=== PATIENT | male | born 1970 | race African-American/Black ===

== ENCOUNTER 2020-05-27 06:13 | Inpatient (IN) ==
[2020-05-27 06:54] LABS: Hematocrit 45.9 VOL% (42.0-52.0); Hemoglobin 14.7 GM/DL (14.0-18.0); Immature Granulocytes % 0.6 %; Immature Granulocytes Absolute 0.03 #; Lymphocytes # 1.1 10*3/uL (1.4-4.0); Lymphocytes % 19.4 % (21.2-54.2); Mean Corpuscular Volume 86.4 FL (87-102); Mean Platelet Volume 9.4 FL (9.6-12.0); Monocytes % 3.7 % (1.7-12.7); Neutrophils % 76.3 % (38.7-73.9); Platelet Count 314 T/CUMM (130-400); Red Blood Count 5.31 MC/CUMM (3.8-5.5); Red Cell Distribution Width 15.8 % (9.3-17.3); White Blood Count 5.4 T/CUMM (4-12)
[2020-05-27 07:03] LABS: INR 1.1; PT Patient Result 11.9 SECS (9.8-11.9)
[2020-05-27 07:15] LABS: Bilirubin,Total 0.5 MG/DL (0.2-1.0); Calcium 7.8 MG/DL (8.5-10.1); Ferritin 1759.4 ng/ml (26-388); Osmolality,Calculated 265.5 MOS/KG (273-304); Potassium 4.6 MMOL/L (3.5-5.1); Total Protein 7.5 G/DL (6.4-8.3)
[2020-05-27] MEDS ORDERED: GLUCAGON 1 MG VIAL IM PRN (08:12)
[2020-05-27] MEDS ORDERED: DEXTROSE 50% 25 GM/50 ML VIAL IV PRN (08:12)
[2020-05-27] MEDS ORDERED: ONDANSETRON 4 MG/2 ML VIAL IV PRN (08:12)
[2020-05-27 08:17] LABS: Hypochromasia Slight; Lymphocytes 17 % (20-55); Platelet Estimate Normal; Segmented Neutrophils 78 % (50-85); Total Cells Counted 100
[2020-05-27] MEDS ORDERED: DEXAMETHASONE 4 MG/1 ML VIAL IV STA (08:19)
[2020-05-27] MEDS: ENOXAPARIN 40 MG/0.4 ML SYRINGE SUBCUT SCH ×2 (08:59→20:50)
[2020-05-27] MEDS ORDERED: DEXAMETHASONE INJ 6 MG in SODIUM CHLORIDE 0.9% 50 ML IV SCH (09:00)
[2020-05-27 09:03] LABS: Thyroid Stimulating Hormone 0.491 uIU/ml (0.358-3.74)
[2020-05-27] MEDS ORDERED: PNEUMOCOCCAL VACCINE (13 VALENT) 0.5 ML SYRINGE IM ONE (09:44)
[2020-05-27] MEDS ORDERED: INFLUENZA VIRUS VACCINE 0.5 ML SYRINGE IM ONE (09:47)
[2020-05-27] MEDS: PANTOPRAZOLE 40 MG TABLET PO SCH (10:07)
[2020-05-27] MEDS: ACETAMINOPHEN 325 MG TABLET PO PRN (10:07)
[2020-05-27] MEDS ORDERED: REMDESIVIR 200 MG in SODIUM CHLORIDE 0.9% 210 ML IV ONE (11:00)
[2020-05-28 06:40] LABS: Basophils % 0.2 % (0.0-0.8); Hematocrit 46.6 VOL% (42.0-52.0); Hemoglobin 14.9 GM/DL (14.0-18.0); Immature Granulocytes % 0.6 %; Immature Granulocytes Absolute 0.03 #; Lymphocytes # 0.8 10*3/uL (1.4-4.0); Lymphocytes % 16.2 % (21.2-54.2); Mean Corpuscular Volume 87.4 FL (87-102); Mean Platelet Volume 9.5 FL (9.6-12.0); Monocytes % 4.3 % (1.7-12.7); Neutrophils % 78.7 % (38.7-73.9); Platelet Count 336 T/CUMM (130-400); Red Blood Count 5.33 MC/CUMM (3.8-5.5); Red Cell Distribution Width 15.9 % (9.3-17.3); White Blood Count 4.7 T/CUMM (4-12)
[2020-05-28 07:15] LABS: Band Neutrophils 1 % (0-10); Lymphocytes 14 % (20-55); Platelet Estimate Adequate; Segmented Neutrophils 77 % (50-85); Total Cells Counted 100
[2020-05-28 07:18] LABS: Albumin 2.5 G/DL (3.4-5.0); Bilirubin,Total 0.4 MG/DL (0.2-1.0); Calcium 8.2 MG/DL (8.5-10.1); Potassium 5.3 MMOL/L (3.5-5.1); Risk Ratio 5.32; Total Protein 7.8 G/DL (6.4-8.3)
[2020-05-28] MEDS ORDERED: SODIUM CHLORIDE 0.9% 1,000 ML IV SCH (08:30)
[2020-05-28] MEDS: PANTOPRAZOLE 40 MG TABLET PO SCH (09:08)
[2020-05-28] MEDS: DEXAMETHASONE 4 MG/1 ML VIAL IV SCH (09:08)
[2020-05-28] MEDS: ENOXAPARIN 40 MG/0.4 ML SYRINGE SUBCUT SCH ×2 (09:08→21:13)
[2020-05-28] MEDS: REMDESIVIR 100 MG in SODIUM CHLORIDE 0.9% 100 ML IV SCH (09:08)
[2020-05-28 09:25] LABS: ABG HCO3 26.1 MMOL/L (20-26); ABG Oxygen Saturation 23.7 % (95-100); ABG PCO2 53.8 MM HG (35-48); ABG PH 7.369 (7.35-7.45); ABG TCO2 27.2 MMOL/L (23-27)
[2020-05-28 09:28] LABS: ABG PO2 21.8 MM HG (80-95)
[2020-05-28 10:21] LABS: ABG Base Excess 2.4 MMOL/L (-2.5-2.5); ABG HCO3 26.4 MMOL/L (20-26); ABG Oxygen Saturation 93.2 % (95-100); ABG PCO2 38.4 MM HG (35-48); ABG PH 7.445 (7.35-7.45); ABG PO2 68.4 MM HG (80-95); ABG TCO2 22.4 MMOL/L (23-27)
[2020-05-28 10:40] LABS: Troponin I < 0.015 NG/ML (0.00-0.045)
[2020-05-28] MEDS ORDERED: cefTRIAXone 1,000 MG in SYRINGE 1 EACH IV SCH (11:00)
[2020-05-28] MEDS: CHOLECALCIFEROL 1,000 UNIT TABLET PO SCH (12:01)
[2020-05-28] MEDS: CETIRIZINE 10 MG TABLET PO SCH (12:01)
[2020-05-28] MEDS: ZINC SULFATE 220 MG CAPSULE PO SCH (12:01)
[2020-05-28] MEDS: ASCORBIC ACID 500 MG TABLET PO SCH ×2 (12:01→21:13)
[2020-05-28] MEDS: ALBUTEROL INHALER 18 GM INH SCH ×2 (12:38→21:14)
[2020-05-28] MEDS: AZITHROMYCIN INJ 500 MG in SODIUM CHLORIDE 0.9% 250 ML IV SCH (12:38)
[2020-05-28] MEDS: FAMOTIDINE 20 MG TABLET PO SCH (21:14)
[2020-05-29] MEDS: ALBUTEROL INHALER 18 GM INH SCH ×4 (01:40→18:51)
[2020-05-29] MEDS ORDERED: ROCURONIUM 100 MG/10 ML VIAL IV ONE (03:39)
[2020-05-29] MEDS ORDERED: ETOMIDATE 20 MG/10 ML VIAL IV ONE (03:39)
[2020-05-29 04:45] LABS: ABG Base Excess 2.3 MMOL/L (-2.5-2.5); ABG HCO3 26.2 MMOL/L (20-26); ABG PCO2 37.1 MM HG (35-48); ABG PH 7.454 (7.35-7.45); Allen Test Positive; Pt O2 Delivery Device BIPAP
[2020-05-29 05:03] LABS: Basophils % 0.2 % (0.0-0.8); Hematocrit 43.6 VOL% (42.0-52.0); Hemoglobin 14.6 GM/DL (14.0-18.0); Immature Granulocytes % 0.4 %; Immature Granulocytes Absolute 0.02 #; Lymphocytes # 0.7 10*3/uL (1.4-4.0); Lymphocytes % 12.4 % (21.2-54.2); Mean Corpuscular HGB Conc 33.5 GM/DL (32-36); Mean Corpuscular Volume 84.2 FL (87-102); Mean Platelet Volume 9.2 FL (9.6-12.0); Platelet Count 404 T/CUMM (130-400); Red Blood Count 5.18 MC/CUMM (3.8-5.5); Red Cell Distribution Width 15.6 % (9.3-17.3); White Blood Count 5.6 T/CUMM (4-12)
[2020-05-29 05:39] LABS: Calcium 7.8 MG/DL (8.5-10.1); Hypochromasia 1+; Microcytosis 1+; Osmolality,Calculated 285.5 MOS/KG (273-304); Potassium 4.7 MMOL/L (3.5-5.1)
[2020-05-29 05:40] LABS: Platelet Estimate Increased; Target Cells Slight
[2020-05-29 05:43] LABS: Albumin 2.6 G/DL (3.4-5.0); Bilirubin,Total 0.5 MG/DL (0.2-1.0); Calcium 8.1 MG/DL (8.5-10.1); Osmolality,Calculated 285.5 MOS/KG (273-304); Potassium 4.5 MMOL/L (3.5-5.1); Total Protein 7.7 G/DL (6.4-8.3)
[2020-05-29] MEDS: ASCORBIC ACID 500 MG TABLET PO SCH ×2 (08:16→20:03)
[2020-05-29] MEDS: CETIRIZINE 10 MG TABLET PO SCH (08:16)
[2020-05-29] MEDS: CHOLECALCIFEROL 1,000 UNIT TABLET PO SCH (08:17)
[2020-05-29] MEDS: ZINC SULFATE 220 MG CAPSULE PO SCH (08:17)
[2020-05-29] MEDS: DEXAMETHASONE 4 MG/1 ML VIAL IV SCH (08:17)
[2020-05-29] MEDS: ENOXAPARIN 40 MG/0.4 ML SYRINGE SUBCUT SCH ×2 (08:17→20:02)
[2020-05-29] MEDS: REMDESIVIR 100 MG in SODIUM CHLORIDE 0.9% 100 ML IV SCH (09:40)
[2020-05-29] MEDS: cefTRIAXone 1,000 MG in SYRINGE 1 EACH IV SCH (11:20)
[2020-05-29] MEDS: AZITHROMYCIN INJ 500 MG in SODIUM CHLORIDE 0.9% 250 ML IV SCH (12:16)
[2020-05-29] MEDS: ALPRAZolam 0.25 MG TABLET PO PRN ×2 (13:05→20:03)
[2020-05-29] MEDS: guaiFENesin 200 MG/10 ML UDCUP PO PRN (20:02)
[2020-05-29] MEDS: ACETAMINOPHEN 325 MG TABLET PO PRN (20:03)
[2020-05-29] MEDS: FAMOTIDINE 20 MG TABLET PO SCH (20:03)
[2020-05-30] MEDS: ALBUTEROL INHALER 18 GM INH SCH ×4 (02:12→18:31)
[2020-05-30 04:23] LABS: ABG Base Excess 1.3 MMOL/L (-2.5-2.5); ABG HCO3 25.5 MMOL/L (20-26); ABG Oxygen Saturation 96.5 % (95-100); ABG PCO2 41.1 MM HG (35-48); ABG PO2 89.2 MM HG (80-95); ABG TCO2 22.6 MMOL/L (23-27); Allen Test Positive
[2020-05-30 04:48] LABS: Hematocrit 41.2 VOL% (42.0-52.0); Hemoglobin 13.1 GM/DL (14.0-18.0); Immature Granulocytes % 0.5 %; Immature Granulocytes Absolute 0.03 #; Lymphocytes # 0.8 10*3/uL (1.4-4.0); Lymphocytes % 13.1 % (21.2-54.2); Mean Corpuscular HGB Conc 31.8 GM/DL (32-36); Mean Corpuscular Volume 87.7 FL (87-102); Mean Platelet Volume 9.7 FL (9.6-12.0); Monocytes % 6.5 % (1.7-12.7); Neutrophils % 79.9 % (38.7-73.9); Platelet Count 444 T/CUMM (130-400); Red Cell Distribution Width 15.6 % (9.3-17.3)
[2020-05-30 05:14] LABS: Albumin 2.3 G/DL (3.4-5.0); Bilirubin,Total 0.4 MG/DL (0.2-1.0); Calcium 7.6 MG/DL (8.5-10.1); Osmolality,Calculated 285.4 MOS/KG (273-304); Potassium 4.7 MMOL/L (3.5-5.1); Total Protein 6.8 G/DL (6.4-8.3)
[2020-05-30 05:21] LABS: Band Neutrophils 1 % (0-10); Hypochromasia 1+; Lymphocytes 9 % (20-55); Microcytosis 1+; Segmented Neutrophils 79 % (50-85); Total Cells Counted 100
[2020-05-30] MEDS: guaiFENesin 200 MG/10 ML UDCUP PO PRN ×3 (07:29→20:20)
[2020-05-30] MEDS: DEXAMETHASONE 4 MG/1 ML VIAL IV SCH (08:03)
[2020-05-30] MEDS: ENOXAPARIN 40 MG/0.4 ML SYRINGE SUBCUT SCH ×2 (08:04→20:21)
[2020-05-30] MEDS: CETIRIZINE 10 MG TABLET PO SCH (08:04)
[2020-05-30] MEDS: ZINC SULFATE 220 MG CAPSULE PO SCH (08:04)
[2020-05-30] MEDS: ASCORBIC ACID 500 MG TABLET PO SCH ×2 (08:04→20:20)
[2020-05-30] MEDS: CHOLECALCIFEROL 1,000 UNIT TABLET PO SCH (08:04)
[2020-05-30] MEDS: REMDESIVIR 100 MG in SODIUM CHLORIDE 0.9% 100 ML IV SCH (09:16)
[2020-05-30] MEDS: cefTRIAXone 1,000 MG in SYRINGE 1 EACH IV SCH (12:18)
[2020-05-30] MEDS: AZITHROMYCIN INJ 500 MG in SODIUM CHLORIDE 0.9% 250 ML IV SCH (12:20)
[2020-05-30] MEDS: FAMOTIDINE 20 MG TABLET PO SCH (20:20)
[2020-05-31] MEDS: ALBUTEROL INHALER 18 GM INH SCH ×4 (02:10→18:18)
[2020-05-31 04:04] LABS: Hematocrit 41.8 VOL% (42.0-52.0); Hemoglobin 12.9 GM/DL (14.0-18.0); Immature Granulocytes % 0.3 %; Immature Granulocytes Absolute 0.02 #; Lymphocytes % 16.3 % (21.2-54.2); Mean Corpuscular HGB Conc 30.9 GM/DL (32-36); Mean Corpuscular Volume 88.9 FL (87-102); Mean Platelet Volume 9.1 FL (9.6-12.0); Monocytes % 5.9 % (1.7-12.7); Neutrophils % 77.5 % (38.7-73.9); Platelet Count 432 T/CUMM (130-400); Red Cell Distribution Width 15.4 % (9.3-17.3); White Blood Count 6.3 T/CUMM (4-12)
[2020-05-31 04:27] LABS: Albumin 2.3 G/DL (3.4-5.0); Bilirubin,Total 0.4 MG/DL (0.2-1.0); Osmolality,Calculated 279.7 MOS/KG (273-304); Potassium 4.7 MMOL/L (3.5-5.1); Total Protein 6.6 G/DL (6.4-8.9)
[2020-05-31 05:07] LABS: ABG Base Excess 1.8 MMOL/L (-2.5-2.5); ABG Oxygen Saturation 97.4 % (95-100); ABG PCO2 42.2 MM HG (35-48); ABG PO2 98.6 MM HG (80-95); ABG TCO2 23.1 MMOL/L (23-27); Allen Test Positive; Pt O2 Delivery Device BIPAP
[2020-05-31] MEDS: ASCORBIC ACID 500 MG TABLET PO SCH ×2 (08:04→20:11)
[2020-05-31] MEDS: CHOLECALCIFEROL 1,000 UNIT TABLET PO SCH (08:04)
[2020-05-31] MEDS: ZINC SULFATE 220 MG CAPSULE PO SCH (08:04)
[2020-05-31] MEDS: CETIRIZINE 10 MG TABLET PO SCH (08:04)
[2020-05-31] MEDS: DEXAMETHASONE 4 MG/1 ML VIAL IV SCH (08:05)
[2020-05-31] MEDS: ENOXAPARIN 40 MG/0.4 ML SYRINGE SUBCUT SCH ×2 (08:05→20:12)
[2020-05-31] MEDS: guaiFENesin 200 MG/10 ML UDCUP PO PRN ×2 (08:31→17:25)
[2020-05-31] MEDS: REMDESIVIR 100 MG in SODIUM CHLORIDE 0.9% 100 ML IV SCH (09:14)
[2020-05-31] MEDS: ALPRAZolam 0.25 MG TABLET PO PRN (09:30)
[2020-05-31] MEDS: MORPHINE 4 MG/1 ML VIAL IV PRN (09:54)
[2020-05-31] MEDS: cefTRIAXone 1,000 MG in SYRINGE 1 EACH IV SCH (11:38)
[2020-05-31] MEDS: AZITHROMYCIN INJ 500 MG in SODIUM CHLORIDE 0.9% 250 ML IV SCH (11:39)
[2020-05-31] MEDS: ALPRAZolam 0.25 MG TABLET PO SCH (20:11)
[2020-05-31] MEDS: FAMOTIDINE 20 MG TABLET PO SCH (20:12)
[2020-06-01] MEDS: ALBUTEROL INHALER 18 GM INH SCH ×5 (03:24→18:35)
[2020-06-01] MEDS: guaiFENesin 200 MG/10 ML UDCUP PO PRN ×2 (03:25→10:09)
[2020-06-01 04:24] LABS: Basophils % 0.1 % (0.0-0.8); Eosinophils % 0.4 % (0.00-10.9); Hematocrit 46.3 VOL% (42.0-52.0); Hemoglobin 14.1 GM/DL (14.0-18.0); Immature Granulocytes % 0.7 %; Immature Granulocytes Absolute 0.07 #; Lymphocytes # 1.2 10*3/uL (1.4-4.0); Lymphocytes % 12.5 % (21.2-54.2); Mean Corpuscular HGB Conc 30.5 GM/DL (32-36); Mean Corpuscular Volume 90.1 FL (87-102); Mean Platelet Volume 9.2 FL (9.6-12.0); Monocytes % 5.4 % (1.7-12.7); Neutrophils % 80.9 % (38.7-73.9); Platelet Count 426 T/CUMM (130-400); Red Blood Count 5.14 MC/CUMM (3.8-5.5); Red Cell Distribution Width 15.4 % (9.3-17.3); White Blood Count 9.6 T/CUMM (4-12)
[2020-06-01 04:43] LABS: Allen Test Positive; Pt O2 Delivery Device BIPAP
[2020-06-01 04:44] LABS: ABG Base Excess 1.4 MMOL/L (-2.5-2.5); ABG HCO3 25.6 MMOL/L (20-26); ABG Oxygen Saturation 94.9 % (95-100); ABG PCO2 40.7 MM HG (35-48); ABG PH 7.414 (7.35-7.45); ABG PO2 77.8 MM HG (80-95); ABG TCO2 22.5 MMOL/L (23-27)
[2020-06-01 04:57] LABS: Albumin 2.2 G/DL (3.4-5.0); Bilirubin,Total 0.6 MG/DL (0.2-1.0); Calcium 7.9 MG/DL (8.5-10.1); Osmolality,Calculated 272.2 MOS/KG (273-304); Potassium 4.8 MMOL/L (3.5-5.1); Total Protein 6.9 G/DL (5.0-7.5)
[2020-06-01] MEDS: ENOXAPARIN 40 MG/0.4 ML SYRINGE SUBCUT SCH (08:41)
[2020-06-01] MEDS: ASCORBIC ACID 500 MG TABLET PO SCH ×2 (08:41→20:37)
[2020-06-01] MEDS: DEXAMETHASONE 4 MG/1 ML VIAL IV SCH (08:41)
[2020-06-01] MEDS: CHOLECALCIFEROL 1,000 UNIT TABLET PO SCH (08:41)
[2020-06-01] MEDS: ZINC SULFATE 220 MG CAPSULE PO SCH (08:41)
[2020-06-01] MEDS: CETIRIZINE 10 MG TABLET PO SCH (08:41)
[2020-06-01] MEDS: ALPRAZolam 0.25 MG TABLET PO SCH ×2 (08:42→20:37)
[2020-06-01] MEDS ORDERED: FUROSEMIDE 40 MG/4 ML VIAL IV ONE (09:06)
[2020-06-01] MEDS: MORPHINE 4 MG/1 ML VIAL IV PRN (10:20)
[2020-06-01] MEDS ORDERED: LORazepam 2 MG/1 ML VIAL IV ONE (10:32)
[2020-06-01] MEDS ORDERED: LORazepam 2 MG/1 ML VIAL ONE (10:35)
[2020-06-01] MEDS: ENOXAPARIN 120 MG/0.8 ML SYRINGE SUBCUT SCH ×2 (12:47→23:31)
[2020-06-01] MEDS: cefTRIAXone 1,000 MG in SYRINGE 1 EACH IV SCH (12:47)
[2020-06-01] MEDS: AZITHROMYCIN INJ 500 MG in SODIUM CHLORIDE 0.9% 250 ML IV SCH (12:48)
[2020-06-01] MEDS: FUROSEMIDE 40 MG/4 ML VIAL IV SCH (18:35)
[2020-06-01] MEDS: POLYETHYLENE GLYCOL POWDER 17 GM PACK PO SCH (20:36)
[2020-06-01] MEDS: FAMOTIDINE 20 MG TABLET PO SCH (20:36)
[2020-06-01] MEDS: guaiFENesin/CODEINE 5 ML LIQUID PO PRN (20:37)
[2020-06-02] MEDS: guaiFENesin/CODEINE 5 ML LIQUID PO PRN (02:12)
[2020-06-02] MEDS: ALBUTEROL INHALER 18 GM INH SCH ×4 (02:12→20:57)
[2020-06-02 04:14] LABS: ABG Base Excess 3.3 MMOL/L (-2.5-2.5); ABG HCO3 27.3 MMOL/L (20-26); ABG Oxygen Saturation 95.3 % (95-100); ABG PCO2 42.2 MM HG (35-48); ABG PH 7.431 (7.35-7.45); ABG PO2 80.7 MM HG (80-95); ABG TCO2 23.6 MMOL/L (23-27); Allen Test Positive; Pt O2 Delivery Device BIPAP
[2020-06-02 06:15] LABS: Basophils % 0.2 % (0.0-0.8); Eosinophils # 0.1 10*3/uL (0.0-0.87); Eosinophils % 0.6 % (0.00-10.9); Hematocrit 46.2 VOL% (42.0-52.0); Hemoglobin 14.9 GM/DL (14.0-18.0); Immature Granulocytes % 0.8 %; Immature Granulocytes Absolute 0.08 #; Lymphocytes # 1.1 10*3/uL (1.4-4.0); Lymphocytes % 10.6 % (21.2-54.2); Mean Corpuscular HGB Conc 32.3 GM/DL (32-36); Mean Corpuscular Volume 86.2 FL (87-102); Mean Platelet Volume 9.1 FL (9.6-12.0); Monocytes % 5.4 % (1.7-12.7); Neutrophils % 82.4 % (38.7-73.9); Platelet Count 526 T/CUMM (130-400); Red Blood Count 5.36 MC/CUMM (3.8-5.5); White Blood Count 10.7 T/CUMM (4-12)
[2020-06-02 06:29] LABS: Calcium 8.8 MG/DL (8.5-10.1); Osmolality,Calculated 274.1 MOS/KG (273-304); Potassium 4.4 MMOL/L (3.5-5.1)
[2020-06-02] MEDS: ZINC SULFATE 220 MG CAPSULE PO SCH (08:01)
[2020-06-02] MEDS: DEXAMETHASONE 4 MG/1 ML VIAL IV SCH (08:02)
[2020-06-02] MEDS: FUROSEMIDE 40 MG/4 ML VIAL IV SCH ×2 (08:02→15:04)
[2020-06-02] MEDS: ASCORBIC ACID 500 MG TABLET PO SCH ×2 (08:02→20:57)
[2020-06-02] MEDS: ALPRAZolam 0.25 MG TABLET PO SCH ×2 (08:02→20:58)
[2020-06-02] MEDS: CETIRIZINE 10 MG TABLET PO SCH (08:02)
[2020-06-02] MEDS: CHOLECALCIFEROL 1,000 UNIT TABLET PO SCH (08:02)
[2020-06-02] MEDS: POLYETHYLENE GLYCOL POWDER 17 GM PACK PO SCH (08:03)
[2020-06-02] MEDS ORDERED: POLYETHYLENE GLYCOL POWDER 17 GM PACK PO PRN (10:50)
[2020-06-02] MEDS: ENOXAPARIN 120 MG/0.8 ML SYRINGE SUBCUT SCH (12:15)
[2020-06-02] MEDS: cefTRIAXone 1,000 MG in SYRINGE 1 EACH IV SCH (12:15)
[2020-06-02] MEDS: MORPHINE 4 MG/1 ML VIAL IV PRN (16:11)
[2020-06-02] MEDS: FAMOTIDINE 20 MG TABLET PO SCH (20:57)
[2020-06-02] MEDS: ACETAMINOPHEN 325 MG TABLET PO PRN (20:57)
[2020-06-03] MEDS: ENOXAPARIN 120 MG/0.8 ML SYRINGE SUBCUT SCH ×3 (00:05→23:00)
[2020-06-03] MEDS: ALBUTEROL INHALER 18 GM INH SCH ×4 (00:09→18:35)
[2020-06-03 05:26] LABS: Basophils % 0.2 % (0.0-0.8); Eosinophils # 0.1 10*3/uL (0.0-0.87); Eosinophils % 0.6 % (0.00-10.9); Hematocrit 50.7 VOL% (42.0-52.0); Hemoglobin 15.7 GM/DL (14.0-18.0); Immature Granulocytes Absolute 0.09 #; Lymphocytes # 1.1 10*3/uL (1.4-4.0); Lymphocytes % 11.9 % (21.2-54.2); Mean Corpuscular Volume 89.4 FL (87-102); Mean Platelet Volume 9.7 FL (9.6-12.0); Neutrophils % 80.3 % (38.7-73.9); Platelet Count 517 T/CUMM (130-400); Red Blood Count 5.67 MC/CUMM (3.8-5.5); Red Cell Distribution Width 15.4 % (9.3-17.3); White Blood Count 8.9 T/CUMM (4-12)
[2020-06-03 06:03] LABS: Albumin 2.8 G/DL (3.4-5.0); Bilirubin,Total 0.4 MG/DL (0.2-1.0); Calcium 8.2 MG/DL (8.5-10.1); Osmolality,Calculated 284.5 MOS/KG (273-304); Potassium 4.8 MMOL/L (3.5-5.1); Total Protein 7.2 G/DL (5.0-7.5)
[2020-06-03] MEDS: ALPRAZolam 0.25 MG TABLET PO SCH ×2 (08:40→21:43)
[2020-06-03] MEDS: DEXAMETHASONE 4 MG/1 ML VIAL IV SCH (08:40)
[2020-06-03] MEDS: FUROSEMIDE 40 MG/4 ML VIAL IV SCH ×2 (08:40→16:50)
[2020-06-03] MEDS: CHOLECALCIFEROL 1,000 UNIT TABLET PO SCH (08:41)
[2020-06-03] MEDS: CETIRIZINE 10 MG TABLET PO SCH (08:41)
[2020-06-03] MEDS: ASCORBIC ACID 500 MG TABLET PO SCH ×2 (08:41→21:43)
[2020-06-03] MEDS: ZINC SULFATE 220 MG CAPSULE PO SCH (08:41)
[2020-06-03 10:09] LABS: Amorphous Crystals,Urine Occasional /HPF (Few); Bilirubin,Urine Negative (Negative); Blood, Urine Large mg/dL (Negative); Glucose,Urine (UA) Negative (Negative); Ketones,Urine Negative (Negative); Mucus,Urine Occasional /LPF (Occasional); Nitrite,Urine Negative (Negative); Protein,Urine 30 MG/DL; RBC,Urine 1027 /HPF (0-4); Urine Appearance CLOUDY (Clear); Urine Color Amber (Yellow); Urine Specific Gravity 1.016 (1.001-1.035); Urine Urobilinogen < 2.0 EU/DL (0.2-1.0)
[2020-06-03] MEDS: cefTRIAXone 1,000 MG in SYRINGE 1 EACH IV SCH (11:25)
[2020-06-03] MEDS: MORPHINE 4 MG/1 ML VIAL IV PRN (17:52)
[2020-06-03] MEDS: FAMOTIDINE 20 MG TABLET PO SCH (21:43)
[2020-06-03] MEDS: ACETAMINOPHEN 325 MG TABLET PO PRN (21:44)
[2020-06-04] MEDS: ALBUTEROL INHALER 18 GM INH SCH ×4 (00:12→19:07)
[2020-06-04 05:46] LABS: Basophils % 0.3 % (0.0-0.8); Eosinophils # 0.1 10*3/uL (0.0-0.87); Eosinophils % 0.9 % (0.00-10.9); Hematocrit 46.7 VOL% (42.0-52.0); Hemoglobin 15.2 GM/DL (14.0-18.0); Immature Granulocytes % 1.2 %; Immature Granulocytes Absolute 0.11 #; Lymphocytes # 1.3 10*3/uL (1.4-4.0); Lymphocytes % 14.2 % (21.2-54.2); Mean Corpuscular HGB Conc 32.5 GM/DL (32-36); Mean Corpuscular Volume 86.3 FL (87-102); Mean Platelet Volume 9.3 FL (9.6-12.0); Monocytes % 8.5 % (1.7-12.7); Neutrophils % 74.9 % (38.7-73.9); Platelet Count 553 T/CUMM (130-400); Red Blood Count 5.41 MC/CUMM (3.8-5.5); Red Cell Distribution Width 15.1 % (9.3-17.3); White Blood Count 9.2 T/CUMM (4-12)
[2020-06-04] MEDS: FUROSEMIDE 40 MG/4 ML VIAL IV SCH (09:40)
[2020-06-04] MEDS: CETIRIZINE 10 MG TABLET PO SCH (09:40)
[2020-06-04] MEDS: CHOLECALCIFEROL 1,000 UNIT TABLET PO SCH (09:40)
[2020-06-04] MEDS: ALPRAZolam 0.25 MG TABLET PO SCH ×2 (09:40→20:25)
[2020-06-04] MEDS: ZINC SULFATE 220 MG CAPSULE PO SCH (09:40)
[2020-06-04] MEDS: ASCORBIC ACID 500 MG TABLET PO SCH ×2 (09:40→20:25)
[2020-06-04] MEDS: DEXAMETHASONE 4 MG/1 ML VIAL IV SCH (09:43)
[2020-06-04] MEDS: ENOXAPARIN 120 MG/0.8 ML SYRINGE SUBCUT SCH (11:07)
[2020-06-04] MEDS: cefTRIAXone 1,000 MG in SYRINGE 1 EACH IV SCH (11:08)
[2020-06-04] MEDS: DOCUSATE SODIUM 100 MG CAPSULE PO SCH ×2 (12:24→20:25)
[2020-06-04] MEDS: POLYETHYLENE GLYCOL POWDER 17 GM PACK PO SCH (12:24)
[2020-06-04] MEDS: guaiFENesin/CODEINE 5 ML LIQUID PO PRN (20:25)
[2020-06-04] MEDS: FAMOTIDINE 20 MG TABLET PO SCH (20:25)
[2020-06-05] MEDS: ALBUTEROL INHALER 18 GM INH SCH ×4 (00:40→19:32)
[2020-06-05] MEDS: MORPHINE 4 MG/1 ML VIAL IV PRN ×2 (04:31→09:04)
[2020-06-05 06:20] LABS: Basophils % 0.2 % (0.0-0.8); Eosinophils % 0.4 % (0.00-10.9); Hematocrit 46.8 VOL% (42.0-52.0); Hemoglobin 15.1 GM/DL (14.0-18.0); Immature Granulocytes % 0.9 %; Immature Granulocytes Absolute 0.08 #; Lymphocytes # 1.6 10*3/uL (1.4-4.0); Lymphocytes % 17.4 % (21.2-54.2); Mean Corpuscular HGB Conc 32.3 GM/DL (32-36); Mean Corpuscular Volume 86.2 FL (87-102); Mean Platelet Volume 9.3 FL (9.6-12.0); Monocytes % 9.1 % (1.7-12.7); Platelet Count 494 T/CUMM (130-400); Red Blood Count 5.43 MC/CUMM (3.8-5.5); Red Cell Distribution Width 14.8 % (9.3-17.3); White Blood Count 8.9 T/CUMM (4-12)
[2020-06-05 06:39] LABS: Calcium 8.7 MG/DL (8.5-10.1); Osmolality,Calculated 276.1 MOS/KG (273-304); Potassium 4.1 MMOL/L (3.5-5.1)
[2020-06-05 07:16] LABS: Bacteria,Urine Few /HPF (Few); Bilirubin,Urine Negative (Negative); Blood, Urine Large mg/dL (Negative); Glucose,Urine (UA) Negative (Negative); Ketones,Urine Negative (Negative); Mucus,Urine Occasional /LPF (Occasional); Nitrite,Urine Negative (Negative); Protein,Urine 100 MG/DL; RBC,Urine 3259 /HPF (0-4); Urine Appearance CLOUDY (Clear); Urine Color Red (Yellow); Urine Specific Gravity 1.018 (1.001-1.035); Urine Urobilinogen < 2.0 EU/DL (0.2-1.0); WBC,Urine 12 /HPF (0-6)
[2020-06-05] MEDS: POLYETHYLENE GLYCOL POWDER 17 GM PACK PO SCH (09:04)
[2020-06-05] MEDS: DEXAMETHASONE 4 MG/1 ML VIAL IV SCH (09:04)
[2020-06-05] MEDS: DOCUSATE SODIUM 100 MG CAPSULE PO SCH ×2 (09:04→20:10)
[2020-06-05] MEDS: CETIRIZINE 10 MG TABLET PO SCH (09:04)
[2020-06-05] MEDS: ASCORBIC ACID 500 MG TABLET PO SCH ×2 (09:04→20:10)
[2020-06-05] MEDS: ZINC SULFATE 220 MG CAPSULE PO SCH (09:04)
[2020-06-05] MEDS: CHOLECALCIFEROL 1,000 UNIT TABLET PO SCH (09:04)
[2020-06-05] MEDS: ALPRAZolam 0.25 MG TABLET PO SCH ×2 (09:04→20:10)
[2020-06-05] MEDS: MAGNESIUM HYDROXIDE SUSP 30 ML UDCUP PO SCH (12:32)
[2020-06-05] MEDS: FAMOTIDINE 20 MG TABLET PO SCH (20:10)
[2020-06-06] MEDS: ALBUTEROL INHALER 18 GM INH SCH ×4 (00:30→20:23)
[2020-06-06 04:25] LABS: ABG Base Excess 6.6 MMOL/L (-2.5-2.5); ABG HCO3 30.4 MMOL/L (20-26); ABG Oxygen Saturation 97.3 % (95-100); ABG PCO2 46.7 MM HG (35-48); ABG PH 7.441 (7.35-7.45); ABG PO2 94.8 MM HG (80-95); ABG TCO2 27.5 MMOL/L (23-27); Allen Test Positive; Pt O2 Delivery Device Other
[2020-06-06 06:53] LABS: Basophils % 0.1 % (0.0-0.8); Eosinophils # 0.1 10*3/uL (0.0-0.87); Eosinophils % 0.6 % (0.00-10.9); Hematocrit 43.5 VOL% (42.0-52.0); Hemoglobin 13.9 GM/DL (14.0-18.0); Immature Granulocytes % 0.6 %; Immature Granulocytes Absolute 0.06 #; Lymphocytes # 1.7 10*3/uL (1.4-4.0); Lymphocytes % 17.2 % (21.2-54.2); Mean Corpuscular Volume 87.7 FL (87-102); Mean Platelet Volume 9.1 FL (9.6-12.0); Monocytes % 7.5 % (1.7-12.7); Platelet Count 431 T/CUMM (130-400); Red Blood Count 4.96 MC/CUMM (3.8-5.5); Red Cell Distribution Width 14.7 % (9.3-17.3); White Blood Count 10.1 T/CUMM (4-12)
[2020-06-06 07:29] LABS: Albumin 2.5 G/DL (3.4-5.0); Bilirubin,Total 0.7 MG/DL (0.2-1.0); Calcium 8.7 MG/DL (8.5-10.1); Osmolality,Calculated 273.2 MOS/KG (273-304); Potassium 4.5 MMOL/L (3.5-5.1); Total Protein 7.2 G/DL (5.0-7.5)
[2020-06-06] MEDS: DEXAMETHASONE 4 MG/1 ML VIAL IV SCH (09:53)
[2020-06-06] MEDS: DOCUSATE SODIUM 100 MG CAPSULE PO SCH ×3 (09:53→21:10)
[2020-06-06] MEDS: CHOLECALCIFEROL 1,000 UNIT TABLET PO SCH (09:54)
[2020-06-06] MEDS: ASCORBIC ACID 500 MG TABLET PO SCH ×3 (09:54→21:10)
[2020-06-06] MEDS: ALPRAZolam 0.25 MG TABLET PO SCH ×3 (09:54→21:10)
[2020-06-06] MEDS: MAGNESIUM HYDROXIDE SUSP 30 ML UDCUP PO SCH ×2 (09:54→15:29)
[2020-06-06] MEDS: CETIRIZINE 10 MG TABLET PO SCH (09:54)
[2020-06-06] MEDS: ZINC SULFATE 220 MG CAPSULE PO SCH (09:54)
[2020-06-06] MEDS: ACETAMINOPHEN 325 MG TABLET PO PRN (09:56)
[2020-06-06] MEDS: POLYETHYLENE GLYCOL POWDER 17 GM PACK PO SCH (10:00)
[2020-06-06] MEDS: FAMOTIDINE 20 MG TABLET PO SCH ×2 (21:06→21:10)
[2020-06-07] MEDS: ALBUTEROL INHALER 18 GM INH SCH ×4 (00:51→19:57)
[2020-06-07 03:25] LABS: ABG Base Excess 8.6 MMOL/L (-2.5-2.5); ABG HCO3 33.6 MMOL/L (20-26); ABG Oxygen Saturation 94.4 % (95-100); ABG PCO2 47.2 MM HG (35-48); ABG PO2 71.9 MM HG (80-95)
[2020-06-07 07:08] LABS: Basophils % 0.4 % (0.0-0.8); Eosinophils # 0.1 10*3/uL (0.0-0.87); Eosinophils % 1.1 % (0.00-10.9); Hematocrit 43.5 VOL% (42.0-52.0); Hemoglobin 13.7 GM/DL (14.0-18.0); Immature Granulocytes % 0.7 %; Immature Granulocytes Absolute 0.07 #; Lymphocytes # 1.8 10*3/uL (1.4-4.0); Mean Corpuscular HGB Conc 31.5 GM/DL (32-36); Mean Platelet Volume 9.2 FL (9.6-12.0); Monocytes % 8.6 % (1.7-12.7); Neutrophils % 71.2 % (38.7-73.9); Platelet Count 368 T/CUMM (130-400); Red Blood Count 4.89 MC/CUMM (3.8-5.5); Red Cell Distribution Width 14.7 % (9.3-17.3); White Blood Count 9.9 T/CUMM (4-12)
[2020-06-07 07:51] LABS: Calcium 8.3 MG/DL (8.5-10.1); Osmolality,Calculated 273.1 MOS/KG (273-304); Potassium 4.7 MMOL/L (3.5-5.1)
[2020-06-07] MEDS: DEXAMETHASONE 4 MG/1 ML VIAL IV SCH (08:58)
[2020-06-07] MEDS: POLYETHYLENE GLYCOL POWDER 17 GM PACK PO SCH (08:58)
[2020-06-07] MEDS: ZINC SULFATE 220 MG CAPSULE PO SCH (08:59)
[2020-06-07] MEDS: CETIRIZINE 10 MG TABLET PO SCH (08:59)
[2020-06-07] MEDS: ASCORBIC ACID 500 MG TABLET PO SCH ×2 (08:59→19:59)
[2020-06-07] MEDS: CHOLECALCIFEROL 1,000 UNIT TABLET PO SCH (08:59)
[2020-06-07] MEDS: MAGNESIUM HYDROXIDE SUSP 30 ML UDCUP PO SCH ×2 (08:59→09:41)
[2020-06-07] MEDS: DOCUSATE SODIUM 100 MG CAPSULE PO SCH ×2 (08:59→19:59)
[2020-06-07] MEDS: ALPRAZolam 0.25 MG TABLET PO SCH ×2 (08:59→19:59)
[2020-06-07] MEDS ORDERED: BISACODYL 10 MG SUPP RECTAL ONE (13:05)
[2020-06-07] MEDS: FAMOTIDINE 20 MG TABLET PO SCH (19:59)
[2020-06-08] MEDS: ALBUTEROL INHALER 18 GM INH SCH ×4 (00:05→19:40)
[2020-06-08 03:44] LABS: ABG HCO3 29.8 MMOL/L (20-26); ABG Oxygen Saturation 95.6 % (95-100); ABG PCO2 44.9 MM HG (35-48); ABG PH 7.446 (7.35-7.45); ABG TCO2 26.8 MMOL/L (23-27)
[2020-06-08 05:50] LABS: Basophils % 0.1 % (0.0-0.8); Eosinophils # 0.1 10*3/uL (0.0-0.87); Eosinophils % 0.7 % (0.00-10.9); Hematocrit 40.6 VOL% (42.0-52.0); Hemoglobin 13.2 GM/DL (14.0-18.0); Immature Granulocytes % 0.5 %; Immature Granulocytes Absolute 0.05 #; Lymphocytes # 1.5 10*3/uL (1.4-4.0); Lymphocytes % 14.4 % (21.2-54.2); Mean Corpuscular HGB Conc 32.5 GM/DL (32-36); Mean Corpuscular Volume 85.7 FL (87-102); Mean Platelet Volume 9.3 FL (9.6-12.0); Neutrophils % 77.3 % (38.7-73.9); Platelet Count 329 T/CUMM (130-400); Red Blood Count 4.74 MC/CUMM (3.8-5.5); Red Cell Distribution Width 14.4 % (9.3-17.3); White Blood Count 10.1 T/CUMM (4-12)
[2020-06-08 06:09] LABS: Calcium 8.8 MG/DL (8.5-10.1); Osmolality,Calculated 271.2 MOS/KG (273-304); Potassium 4.7 MMOL/L (3.5-5.1)
[2020-06-08] MEDS: CETIRIZINE 10 MG TABLET PO SCH (09:14)
[2020-06-08] MEDS: CHOLECALCIFEROL 1,000 UNIT TABLET PO SCH (09:14)
[2020-06-08] MEDS: DOCUSATE SODIUM 100 MG CAPSULE PO SCH ×2 (09:14→21:28)
[2020-06-08] MEDS: ZINC SULFATE 220 MG CAPSULE PO SCH (09:14)
[2020-06-08] MEDS: ASCORBIC ACID 500 MG TABLET PO SCH ×2 (09:15→20:41)
[2020-06-08] MEDS: MAGNESIUM HYDROXIDE SUSP 30 ML UDCUP PO SCH (09:16)
[2020-06-08] MEDS: DEXAMETHASONE 4 MG/1 ML VIAL IV SCH (09:17)
[2020-06-08] MEDS: POLYETHYLENE GLYCOL POWDER 17 GM PACK PO SCH (10:31)
[2020-06-08] MEDS: ENOXAPARIN 40 MG/0.4 ML SYRINGE SUBCUT SCH (10:46)
[2020-06-08] MEDS: FAMOTIDINE 20 MG TABLET PO SCH (20:41)
[2020-06-08] MEDS: MELATONIN 3 MG TABLET PO PRN (21:24)
[2020-06-08] MEDS: ALPRAZolam 0.25 MG TABLET PO PRN (21:24)
[2020-06-09] MEDS: ALBUTEROL INHALER 18 GM INH SCH ×4 (00:58→18:53)
[2020-06-09 03:57] LABS: ABG Base Excess 4.7 MMOL/L (-2.5-2.5); ABG HCO3 28.5 MMOL/L (20-26); ABG Oxygen Saturation 93.3 % (95-100); ABG PCO2 42.8 MM HG (35-48); ABG PH 7.444 (7.35-7.45); ABG PO2 67.8 MM HG (80-95); ABG TCO2 25.9 MMOL/L (23-27)
[2020-06-09 03:59] LABS: Allen Test Positive; Pt O2 Delivery Device Other
[2020-06-09 04:00] LABS: Basophils % 0.2 % (0.0-0.8); Eosinophils # 0.1 10*3/uL (0.0-0.87); Eosinophils % 0.5 % (0.00-10.9); Hematocrit 36.8 VOL% (42.0-52.0); Hemoglobin 11.9 GM/DL (14.0-18.0); Immature Granulocytes % 0.6 %; Immature Granulocytes Absolute 0.07 #; Lymphocytes # 1.6 10*3/uL (1.4-4.0); Lymphocytes % 13.9 % (21.2-54.2); Mean Corpuscular HGB Conc 32.3 GM/DL (32-36); Mean Corpuscular Volume 85.2 FL (87-102); Mean Platelet Volume 9.7 FL (9.6-12.0); Monocytes % 6.6 % (1.7-12.7); Neutrophils % 78.2 % (38.7-73.9); Platelet Count 282 T/CUMM (130-400); Red Blood Count 4.32 MC/CUMM (3.8-5.5); Red Cell Distribution Width 14.3 % (9.3-17.3); White Blood Count 11.1 T/CUMM (4-12)
[2020-06-09 04:26] LABS: Calcium 8.1 MG/DL (8.5-10.1); Osmolality,Calculated 270.4 MOS/KG (273-304); Potassium 4.5 MMOL/L (3.5-5.1)
[2020-06-09] MEDS: ALPRAZolam 0.25 MG TABLET PO PRN ×2 (11:39→20:43)
[2020-06-09] MEDS: CHOLECALCIFEROL 1,000 UNIT TABLET PO SCH (12:00)
[2020-06-09] MEDS: ZINC SULFATE 220 MG CAPSULE PO SCH (12:00)
[2020-06-09] MEDS: MAGNESIUM HYDROXIDE SUSP 30 ML UDCUP PO SCH (12:00)
[2020-06-09] MEDS: ASCORBIC ACID 500 MG TABLET PO SCH ×2 (12:00→20:13)
[2020-06-09] MEDS: CETIRIZINE 10 MG TABLET PO SCH (12:00)
[2020-06-09] MEDS: ENOXAPARIN 40 MG/0.4 ML SYRINGE SUBCUT SCH (13:03)
[2020-06-09] MEDS: DOCUSATE SODIUM 100 MG CAPSULE PO SCH ×2 (13:03→20:13)
[2020-06-09] MEDS: POLYETHYLENE GLYCOL POWDER 17 GM PACK PO SCH (13:04)
[2020-06-09] MEDS: predniSONE 20 MG TABLET PO SCH ×2 (13:05→13:15)
[2020-06-09] MEDS: FAMOTIDINE 20 MG TABLET PO SCH (20:13)
[2020-06-09] MEDS: MELATONIN 3 MG TABLET PO PRN (20:43)
[2020-06-10] MEDS: ALBUTEROL INHALER 18 GM INH SCH ×3 (00:07→14:11)
[2020-06-10 04:05] LABS: Basophils % 0.1 % (0.0-0.8); Eosinophils % 0.1 % (0.00-10.9); Hematocrit 34.1 VOL% (42.0-52.0); Hemoglobin 11.2 GM/DL (14.0-18.0); Immature Granulocytes % 0.7 %; Immature Granulocytes Absolute 0.07 #; Lymphocytes % 10.8 % (21.2-54.2); Mean Corpuscular HGB Conc 32.8 GM/DL (32-36); Mean Corpuscular Volume 85.7 FL (87-102); Monocytes % 5.4 % (1.7-12.7); Neutrophils % 82.9 % (38.7-73.9); Platelet Count 242 T/CUMM (130-400); Red Blood Count 3.98 MC/CUMM (3.8-5.5); Red Cell Distribution Width 14.5 % (9.3-17.3); White Blood Count 9.6 T/CUMM (4-12)
[2020-06-10 04:22] LABS: % Iron Saturation 20.5 % (18-50); Calcium 8.1 MG/DL (8.5-10.1); Ferritin 759.9 ng/ml (26-388); Osmolality,Calculated 275.4 MOS/KG (273-304); Potassium 4.7 MMOL/L (3.5-5.1)
[2020-06-10 04:24] LABS: Folate 3.6 NG/ML (5.38-24.0)
[2020-06-10] MEDS: ENOXAPARIN 40 MG/0.4 ML SYRINGE SUBCUT SCH (09:58)
[2020-06-10] MEDS: DOCUSATE SODIUM 100 MG CAPSULE PO SCH ×2 (10:29→20:45)
[2020-06-10] MEDS: predniSONE 20 MG TABLET PO SCH (11:10)
[2020-06-10] MEDS: ZINC SULFATE 220 MG CAPSULE PO SCH (11:10)
[2020-06-10] MEDS: FOLIC ACID 1 MG TABLET PO SCH (11:11)
[2020-06-10] MEDS: POLYETHYLENE GLYCOL POWDER 17 GM PACK PO SCH (11:41)
[2020-06-10] MEDS: CHOLECALCIFEROL 1,000 UNIT TABLET PO SCH (11:41)
[2020-06-10] MEDS: MAGNESIUM HYDROXIDE SUSP 30 ML UDCUP PO SCH (11:41)
[2020-06-10] MEDS: ASCORBIC ACID 500 MG TABLET PO SCH (11:41)
[2020-06-10] MEDS: CETIRIZINE 10 MG TABLET PO SCH (11:42)
[2020-06-10] MEDS ORDERED: ALBUTEROL INHALER 18 GM INH PRN (14:10)
[2020-06-10] MEDS: FLUTICASONE 50 MCG NASAL SPRAY 16 GM BOTTLE BOTH NARES SCH (15:10)
[2020-06-10] MEDS: FAMOTIDINE 20 MG TABLET PO SCH (20:46)
[2020-06-10] MEDS: MELATONIN 3 MG TABLET PO PRN (22:30)
[2020-06-11] MEDS: FLUTICASONE 50 MCG NASAL SPRAY 16 GM BOTTLE BOTH NARES SCH ×2 (08:40→08:45)
[2020-06-11] MEDS: ENOXAPARIN 40 MG/0.4 ML SYRINGE SUBCUT SCH (08:40)
[2020-06-11] MEDS: FOLIC ACID 1 MG TABLET PO SCH (08:40)
[2020-06-11] MEDS: DOCUSATE SODIUM 100 MG CAPSULE PO SCH ×2 (08:40→21:29)
[2020-06-11] MEDS: ZINC SULFATE 220 MG CAPSULE PO SCH (08:40)
[2020-06-11] MEDS: CETIRIZINE 10 MG TABLET PO SCH (08:40)
[2020-06-11] MEDS: FAMOTIDINE 20 MG TABLET PO SCH ×2 (08:40→21:27)
[2020-06-11] MEDS: predniSONE 20 MG TABLET PO SCH (08:40)
[2020-06-11] MEDS: ALUMINUM/MAGNES/SIMETH MAX STR 30 ML UDCUP PO PRN ×2 (10:59→18:07)
[2020-06-11] MEDS ORDERED: ALBUTEROL 2.5 MG/3 ML NEB RESP TX PRN (14:30)
[2020-06-12] MEDS: ALUMINUM/MAGNES/SIMETH MAX STR 30 ML UDCUP PO PRN ×3 (08:27→17:15)
[2020-06-12] MEDS: predniSONE 20 MG TABLET PO SCH (08:32)
[2020-06-12] MEDS: FAMOTIDINE 20 MG TABLET PO SCH (08:32)
[2020-06-12] MEDS: ZINC SULFATE 220 MG CAPSULE PO SCH (08:32)
[2020-06-12] MEDS: CETIRIZINE 10 MG TABLET PO SCH (08:33)
[2020-06-12] MEDS: FOLIC ACID 1 MG TABLET PO SCH (08:33)
[2020-06-12] MEDS: ENOXAPARIN 40 MG/0.4 ML SYRINGE SUBCUT SCH (08:34)
[2020-06-12] MEDS: DOCUSATE SODIUM 100 MG CAPSULE PO SCH (08:34)
[2020-06-12] MEDS: FLUTICASONE 50 MCG NASAL SPRAY 16 GM BOTTLE BOTH NARES SCH (08:35)
[2020-06-12] MEDS: ACETAMINOPHEN 325 MG TABLET PO PRN (09:09)
[2020-06-12] MEDS ORDERED: SULFAMETHOX/TRIMETHOPRIM 800-160 MG TABLET PO SCH (11:00)
[2020-06-12 16:16] VITALS: BP 100/61
== END 2020-06-12 18:20 | disposition home health service (06) | DRG 177 ==
LOC: EDUNIT# → EDBD → N.ED 06:13 → SUATTDRO 08:10 → N.EDINP 08:10 → N.2E 09:27 → N.CC 05-29 03:43 → N.2E 06-02 13:15 → N.5E 06-10 11:56
PROVIDERS: ADMIT Internal Medicine; ATTEND Internal Medicine